=== PATIENT | male | born 1960 | race Caucasian/White ===

== ENCOUNTER → 2016-07-07 | Day surgery (SDC) | payer BC ==
--- NOTE | 2016-07-06 20:58 | History and Physical Report ---
DATE OF ADMISSION: 07/07/2016 PERTINENT HISTORY: The patient is a 56-year-old male with a history of an increasing size right inguinal hernia bulge for about three to four weeks with some pain associated. He has been wearing a truss with much help from this, however, because of the increasing pain he saw his attending physician, Dr. Cortez, who advised him to have surgical evaluation and treatment. He came to see me. There is no history of incarceration-obstruction, and he is not ready to undergo the repair of the hernia. PAST MEDICAL HISTORY: Pertinent for oral surgery in the past with no complications and history of HIV infection with T-cells between 5 and 600, viral load is undetectable. MEDICATIONS: He takes two HIV medications, does not remember the name or bring them to the hospital the day of the procedure. ALLERGIES: Sulfa. REVIEW OF SYSTEMS: None pertinent except for above. PHYSICAL EXAMINATION: VITAL SIGNS: Blood pressure was 120/78, temperature 97.6 degrees, pulse 72, and respirations 16. GENERAL: The patient is a well developed, middle-aged male, in no distress. HEENT: Normal. NECK: Supple. LUNGS: Clear. HEART: Rhythmic and regular. ABDOMEN: Soft and flat, there is a right inguinal reducible hernia, slightly tender, and comes right out the moment the patient has any valsalva maneuvers. GENITALIA: Normal male. Both testes descended. RECTAL: Deferred. EXTREMITIES: Good range of motion. No edema. IMPRESSION: 1. Right inguinal hernia. 2. Human immunodeficiency virus infection. PLAN: The patient is to be admitted on 07/07/2016 for repair of the right inguinal hernia in the operating room. He understands the nature of the procedure, the indications, the risks, the benefits, the possible complications, and he wishes to proceed. Nicola Arzola M.D. DR: SONYA/kenneth JOB#: [id number] CC:
[~2016-07-07] VITALS: Ht 182.9 cm; Wt 84.8 kg
[2016-07-07] VITALS (12 sets, daily range): BP systolic 129–159; BP diastolic 76–99
[~2016-07-07] MED LIST: Atropine Inj 1mg/10ml Syr IV PRN; Bupivacaine w/Epi 0.25% 30ml Vial INJ ONE; DESCOVY 200-251 EACH PO; Dexamethasone 4mg/ml vial ONE; DiphenhydrAMINE 50mg/ml Inj IVP PRN; Glycopyrrolate 0.2mg/ml 1ml Vial ONE; HYDROmorphone 1mg/ml Carpuject SUBQ PRN; Hydromorphone 0.5mg/0.5ml inj IVP PRN; Ketorolac 30mg Inj IV PRN; Ketorolac 60mg Inj IV PRN; LORazepam Inj 2mg/ml 1ml IV PRN; LR 1000ml 1,000 ML IVLG SCH; LR 1000ml ONE; Labetalol 5mg/ml 20ml vial IV PRN; Lidocaine 1% MPF 10mg/ml 5ml ONE; Meperidine 25mg/ml Inj IV PRN; Metoclopramide 10mg/2ml Inj IVP PRN; Midazolam 2mg/2ml Inj IVP PRN; Midazolam 2mg/2ml Inj ONE; NS Irrig 1000ml ONE; Neostigmine 1mg/ml 10ml Inj ONE; Norco 5mg/325mg tab ORAL PRN; Norco 7.5mg/325mg tab ORAL PRN; Oxycodone/Acetaminophen 5-325 ORAL PRN; Propofol 10mg/ml 20ml IV ONE; Sterile Water Irrig 1000ml IRRIG ONE; TIVICAY50 MG ORAL; Tylenol #3 tab (300mg/30mg) ORAL PRN; Zemuron 50mg/5ml Inj IV ONE; fentaNYL 100 mcg/2 mL IV ONE; fentaNYL 100 mcg/2 mL IV PRN
--- NOTE | 2016-07-07 06:55 | Anethesia Preoperative Eval ---
Anesthesia Pre-op PMH/ROS General Date of Evaluation: Jul 07, 2016 Time of Evaluation: 07:17 Anesthesiologist: Feliz ASA Score: ASA 3 Mallampati Score Class I : Soft palate, uvula, fauces, pillars visible Class II: Soft palate, uvula, fauces visible Class III: Soft palate, base of uvula visible Class IV: Only hard plate visible Mallampati Classification: Class II Surgeon: Ness Diagnosis: R Inguinal Hernia Surgical Procedure: R Inguinal Hernia Repair Anesthesia History: none Family History: no anesthesia problems Allergies: Coded Allergies: SULFA (SULFONAMIDE ANTIBIOTICS) (Verified Allergy, Unknown, 07/06/16) Medications: see eMAR Past Medical History Cardiovascular: Reports: HTN Hematology/Immune: Reports: other - HIV, Basal Cell CA Anesthesia Pre-op Phys. Exam Physician Exam Last Vital Signs Date Time Temp Pulse Resp B/P Pulse Ox O2 Delivery O2 Flow Rate FiO2 07/07/16 06:29 98.0 66 18 159/83 98 Room Air Constitutional: NAD Neurologic: CN 2-12 intact Cardiovascular: RRR Respiratory: CTA Gastrointestinal: S/NT/ND Airway Exam Mallampati Score: Class II MO: limited ROM: full Teeth: intact Anesthesia Pre-op A/P Risk Assessment & Plan Assessment: ASA 3 Plan: GA, BIS, Glidescope Status Change Before Surgery: No Pre-Antibiotics Dru Grams Ancef IV Given Within 1 Hr of Incision: Yes Time Given: 07:29 Henry Piper MD Jul 07, 2016 06:55
--- NOTE | 2016-07-07 06:58 | Immediate Post-Op Evaluation ---
Immediate Post-Op Evalulation Immediate Post-Op Evalulation Procedure: R Inguinal Hernia Repair Date of Evaluation: Jul 07, 2016 Time of Evaluation: 08:25 IV Fluids: 500 LR Blood Products: 0 Estimated Blood Loss: 5 Urinary Output: 0 Blood Pressure Systolic: 167 Blood Pressure Diastolic: 103 Pulse Rate: 89 Respiratory Rate: 18 O2 Sat by Pulse Oximetry: 99 Temperature (Fahrenheit): 97.8 Pain Score (1-10): 2 Nausea: No Vomiting: No Complications 0 Patient Status: awake, reacts, patent, extubated, none Hydration Status: adequate Dru Grams Ancef IV Given Within 1 Hr of Incision: Yes Time Given: 07:29 Henry Piper MD Jul 07, 2016 06:58
--- NOTE | 2016-07-07 07:06 | Pre-Procedure Note/Attestation ---
Pre-Procedure Note/Attestation Complete Prior to Procedure Planned Procedure: right Procedure Narrative: repair of right inguinal hernia Indications for Procedure Pre-Operative Diagnosis: right inguinal hernia Attestation I attest that I discussed the nature of the procedure; its benefits; risks and complications; and alternatives (and the risks and benefits of such alternatives ), prior to the procedure, with the patient (or the patient's legal malt liquors sales representative). I attest that, if there was a reasonable possibility of needing a blood transfusion, the patient (or the patient's legal malt liquors sales representative) was given the [facility] standardized written summary, pursuant to the [place] Blood Safety Act ([place] Health and Safety Code # 1645, as amended). I attest that I re-evaluated the patient just prior to the surgery and that there has been no change in the patient's H&P, except as documented below: BENJAMIN YOUNG Jul 07, 2016 07:06
--- NOTE | 2016-07-07 07:45 | 48 Hour Post Anesthesia Eval ---
Post Anesthesia Evaluation Procedure: R Inguinal Hernia Repair Date of Evaluation: Jul 07, 2016 Time of Evaluation: 10:53 Blood Pressure Systolic: 154 0: 99 Pulse Rate: 82 Respiratory Rate: 18 Temperature (Fahrenheit): 98.4 O2 Sat by Pulse Oximetry: 99 Airway: patent Nausea: No Vomiting: No Pain Intensity: 2 Hydration Status: adequate Cardiopulmonary Status: Stable Mental Status/LOC: patient returned to baseline Follow-up Care/Observations: 0 Post-Anesthesia Complications: 0 Follow-up care needed: ready to discharge Henry Piper MD Jul 07, 2016 07:45
--- NOTE | 2016-07-07 08:43 | Brief Operative Note ---
Immediate Post Operative Note Operative Note Pre-op Diagnosis: right inguinal hernia Procedure: repair of right inguinal hernia Post-op Diagnosis: same Post-op Diagnosis: same as pre-op Surgeon: mitch Anesthesiologist: drew Anesthesia: general Specimen: yes Complications: none Condition: stable Estimated Blood Loss: minimal Drains: none Implant(s) used?: Yes - nylon mesh BENJAMIN YOUNG Jul 07, 2016 08:43
--- NOTE | 2016-07-07 21:58 | Operative Note - Dictated ---
DATE OF OPERATION: 07/07/2016 SURGEON: Nicola Arzola M.D. KARATE TEACHER: None. ANESTHESIOLOGIST: Henry Piper M.D. ANESTHESIA: General. PREOPERATIVE DIAGNOSIS: Left inguinal hernia. POSTOPERATIVE DIAGNOSIS: Left inguinal hernia. NAME OF OPERATION: Repair of left inguinal hernia with Prolene mesh. FINDINGS AND INDICATIONS: This is a 56-year-old male with a history of progressively enlarging right inguinal hernia with pain, tenderness, and difficulty to reduce the hernia, which he has had to use a truss for. Because of the increasing size, the attending physician referred him to me and I advised him to undergo repair. At the time of the operation, a narrow necked long indirect inguinal hernia was found, which was removed in its entirety as described and repaired with Prolene mesh on the pelvic floor with excellent results. The procedure was done uneventfully. PROCEDURE DESCRIPTION: With the patient lying in the supine position on the operating table, under general anesthesia, with the entire lower abdominal and groin regions prepped and draped in the usual sterile fashion with Betadine, an oblique incision was carried out on the right groin. Following the skin line, subcutaneous tissues were divided. The external oblique aponeurosis was identified and opened in the direction of its fibers. The ilioinguinal nerve was then carefully identified and left intact. The external spermatic fascia was then opened longitudinally and the hernial sac was then identified, grasped between clamps, and then dissected free with all of the spermatic cord contents removed off it all the way down to the internal ring. At this point, the base of the sac was ligated with 2-0 Vicryl transfixation suture and the specimen was amputated and sent to Pathology. The area was then irrigated. Hemostasis was adequate. We then double checked for hemostasis, which was obtained with Vicryl ties or cautery, and then the pelvic floor was reinforced by approximating the shelving edge of the inguinal ligament to the combined aponeurosis of the internal oblique and transversus abdominis muscles using a continuous 2-0 Prolene suture to the mesh. A slit was made on the lateral aspect of the mesh to allow the cord structures to go through and the Prolene suture was snugly ligated recreating a nice internal ring. The area was irrigated. Hemostasis was adequate. The cord and the nerve were replaced anatomically and the external oblique aponeurosis was closed with 3-0 Vicryl suture and the skin with 4-0 Vicryl subcuticular sutures and Steri-Strips. Marcaine 0.5% with epinephrine 30 mL was injected for long-acting local anesthetic. The patient tolerated the procedure well. Estimated blood loss was less than 5 mL. Sponge and needle counts were correct. He went to the recovery room in a stable condition. Nicola Arzola M.D. DR: RAKAN JOB#: [id number] CC: GREGOR
--- NOTE | 2016-07-24 10:01 | Physician Query ---
PLEASE COMPLETE DOCUMENT BEFORE SIGNING Dear Dr. Nicola Arzola Date: 07/24/2016 Sld Teacher/CDS Name: Huma Dior, CCS,DIVISION COMMANDER Exercise your independent professional judgment when responding to the query. Questions asked do not imply a particular answer is desired or expected. We greatly appreciate your clarification on this issue. CLINICAL DOCUMENTATION STATES: History & Physical states: PERTINENT HISTORY: The patient is a 56-year-old male with a history of an increasing size IMPRESSION: 1. Right inguinal hernia. Operative Report states: DATE OF OPERATION: 07/07/2016 PREOPERATIVE DIAGNOSIS: Left inguinal hernia. POSTOPERATIVE DIAGNOSIS: Left inguinal hernia. NAME OF OPERATION: Repair of left inguinal hernia with Prolene mesh. This is a 56-year-old male with a history of progressively enlarging right inguinal hernia -an oblique incision was carried out on the right groin. Please respond to the following question: Please indicate the correct side for inguinal hernia during this surgery: ( X ) Right ( ) Left Nicola Arzola M.D. Date & Time [facility]
== END | disposition home or self-care (01) ==
LOC: SUR 05:57
DX: K40.90 Unilateral inguinal hernia, without obstruction or gangrene, not specified as recurrent (principal); I10 Essential (primary) hypertension; Z85.828 Personal history of other malignant neoplasm of skin; Z88.2 Allergy status to sulfonamides
CPT/HCPCS: 49505; J0690; J1100; J2250; J2405; J2704; J2710; J3010; J7120; 94003; 94150